=== PATIENT | female | born 1995 | race Two or more races ===

== ENCOUNTER 2021-03-19 19:09 | Emergency (ER) | payer MEDICAID, OTHER ==
[~2021-03-19] VITALS: Ht 162.6 cm; Wt 76.7 kg
[2021-03-20 02:13] VITALS: BP 114/78
== END 2021-03-20 04:41 | disposition home or self-care (01) ==
LOC: ER 19:12
DX: S06.899A Other specified intracranial injury with loss of consciousness of unspecified duration, initial encounter (principal); S52.502A Unspecified fracture of the lower end of left radius, initial encounter for closed fracture; S13.9XXA Sprain of joints and ligaments of unspecified parts of neck, initial encounter; S73.102A Unspecified sprain of left hip, initial encounter; S00.81XA Abrasion of other part of head, initial encounter; M62.838 Other muscle spasm; W18.00XA Striking against unspecified object with subsequent fall, initial encounter; Y93.89 Activity, other specified; Y92.89 Other specified places as the place of occurrence of the external cause; Y99.8 Other external cause status
CPT/HCPCS: 29125; 70450; 70486; 72125; 73130; 73502

== ENCOUNTER 2023-09-20 11:08 | Emergency (ER) | payer MEDICAID ==
[~2023-09-20] VITALS: Ht 167.6 cm; Wt 77.0 kg
[~2023-09-20 11:08] MED LIST: BACDST PO; IBUP-1456 PO
[2023-09-20 12:40] LABS: Urine Bacteria FEW /hpf (None Seen); Urine Blood Negative /uL (Negative); Urine Clarity Turbid (Clear); Urine Mucus FEW (None Seen); Urine Protein, UAD Negative (Negative); Urine Specific Gravity 1.008 (1.001-1.035); Urine Urobilinogen Normal (Negative); Urine WBC 3 /hpf (0 - 5)
[2023-09-20 12:41] LABS: Urine Color Straw (Yellow)
[2023-09-20 13:13] VITALS: BP 128/84; PULSE 94; RESP 18; TEMP 99.4; O2SAT 98
[2023-09-20 14:23] LABS: Vaginal Trichomonas Not Present
[2023-09-20 14:24] LABS: Vaginal Bacteria Many; Vaginal Clue Cells Moderate; Vaginal Epithelial Cells Many
[2023-09-20] MEDS ORDERED: METR-344 PO (14:27)
== END 2023-09-20 14:39 | disposition home or self-care (01) ==
LOC: ER 11:08
DX: O23.591 Infection of other part of genital tract in pregnancy, first trimester (principal); Z3A.01 Less than 8 weeks gestation of pregnancy; Z79.899 Other long term (current) drug therapy
CPT/HCPCS: 81001; 81025; 87210

== ENCOUNTER → 2023-11-05 | Outpatient (CLI) | payer MEDICAID ==
[~2023-11-05] MED LIST changes: +METR-344 PO
[2023-11-05 10:44] LABS: Basophils # (auto) 0 10 ^3/uL (0-0.2); Basophils % (auto) 0.3 % (0.0-2.0); Eosinophils # (auto) 0.1 10 ^3/uL (0-0.8); Eosinophils % (auto) 0.6 % (0.0-7.0); Hematocrit 39.2 % (36.0-46.0); Hemoglobin 13.6 g/dL (12.2-16.2); Lymphocytes # (auto) 1.7 10 ^3/uL (0.4-5.4); Lymphocytes % (auto) 19.9 % (10.0-50.0); Mean Corpuscular Hemoglobin 31.7 pg (28.0-32.0); Mean Corpuscular Hgb Conc. 34.7 g/dL (32.0-36.0); Mean Corpuscular Volume 91.4 fL (80.0-100.0); Monocytes # (auto) 0.4 10 ^3/uL (0-1.3); Monocytes % (auto) 4.9 % (0.0-12.0); Neutrophils # (auto) 6.4 10 ^3/uL (1.6-8.6); Neutrophils % (auto) 74.3 % (37.0-80.0); Red Blood Cells 4.29 10^6/uL (4.0-5.20); Red Cell Distribution Width 13.2 % (11.8-14.3); White Blood Cell 8.6 10^3/uL (4.4-10.8)
[2023-11-05 11:11] LABS: Alanine Aminotransferase 11 U/L (7-40); Albumin 4.3 g/dL (3.2-4.8); Alkaline Phosphatase 42 U/L (46-116); Anion Gap 6 (5-15); Aspartate Aminotransferase 9 U/L (13-40); Calcium 9.4 mg/dL (8.5-10.1); Carbon Dioxide 24 mmol/L (20-30); Chloride 106 mmol/L (98-107); Cholesterol 207 mg/dL (< 200); Glucose 85 mg/dL (74-106); HDL Cholesterol 61 mg/dL (40-59); LDL Cholesterol 137 mg/dL (< 100); Potassium 3.5 mmol/L (3.5-5.1); Sodium 136 mmol/L (136-145); Triglycerides 122 mg/dL (< 150)
[2023-11-05 11:12] LABS: Bilirubin, Total 0.3 mg/dL (0.2-1.0); Total Protein 7.1 g/dL (5.7-8.2)
[2023-11-05 11:20] LABS: BUN/Creatinine Ratio 9.3 (10.0-20.0); Blood Urea Nitrogen < 5 mg/dL (9-23)
[2023-11-05 11:39] LABS: Amphetamine Screen, Urine Neg (NEGATIVE); Barbiturate Scree,Urine Neg (NEGATIVE)
[2023-11-05 11:40] LABS: Benzodiazephine Screen, Urine Neg (NEGATIVE); Cannabinoid Screen, Urine Neg (NEGATIVE); Cocaine Screen, Urine Neg (NEGATIVE); Opiate Scree,Urine Neg (NEGATIVE); Phencyclidine Screen, Urine Neg (NEGATIVE)
[2023-11-06 06:06] LABS: RPR Non Reactive (Non Reactive)
[2023-11-06 10:06] LABS: Varicella Zoster IgG Antibody 1225 index (Immune >165)
[2023-11-06 14:06] LABS: Chlamydia Trachomatis, NAA Negative (Negative); Neisseria gonorrhoeae, NAA Negative (Negative)
[2023-11-07 11:07] LABS: QuantiFERON-TB Gold Plus Negative (Negative)
== END | disposition home or self-care (01) ==
LOC: LAB 10:12
PROVIDERS: ATTEND Obstetrics & Gynecology
DX: Z36.0 Encounter for antenatal screening for chromosomal anomalies (principal); Z34.80 Encounter for supervision of other normal pregnancy, unspecified trimester; Z31.430 Encounter of female for testing for genetic disease carrier status for procreative management; N39.0 Urinary tract infection, site not specified
CPT/HCPCS: 36415; 80053; 80061; 80307; 84439; 84702; 85025; 86592; 86703; 86762; 86787; 86850; 86900; 86901; 87086; 87340; 87902

== ENCOUNTER → 2023-11-29 | Outpatient (CLI) | payer MEDICAID | END | disposition home or self-care (01) | LOC: LAB 10:39 | PROVIDERS: ATTEND Obstetrics & Gynecology | DX: Z34.80 Encounter for supervision of other normal pregnancy, unspecified trimester (principal); Z3A.00 Weeks of gestation of pregnancy not specified | CPT/HCPCS: 36415; 84443 ==

== ENCOUNTER → 2024-03-05 | Outpatient (CLI) | payer MEDICAID ==
[2024-03-05 10:02] LABS: Basophils # (auto) 0 10 ^3/uL (0-0.2); Basophils % (auto) 0.1 % (0.0-2.0); Eosinophils # (auto) 0.1 10 ^3/uL (0-0.8); Eosinophils % (auto) 0.6 % (0.0-7.0); Hematocrit 39.2 % (36.0-46.0); Hemoglobin 13.3 g/dL (12.2-16.2); Lymphocytes # (auto) 1.6 10 ^3/uL (0.4-5.4); Lymphocytes % (auto) 17.1 % (10.0-50.0); Mean Corpuscular Hgb Conc. 33.9 g/dL (32.0-36.0); Mean Corpuscular Volume 91.3 fL (80.0-100.0); Monocytes # (auto) 0.5 10 ^3/uL (0-1.3); Monocytes % (auto) 4.9 % (0.0-12.0); Neutrophils # (auto) 7.2 10 ^3/uL (1.6-8.6); Neutrophils % (auto) 77.3 % (37.0-80.0); Nucleated Red Blood Cells % 0.3 %; Platelet Count (auto) 221 10^3/uL (140-450); Red Blood Cells 4.29 10^6/uL (4.0-5.20); Red Cell Distribution Width 14.5 % (11.8-14.3); White Blood Cell 9.3 10^3/uL (4.4-10.8)
[2024-03-05 10:07] LABS: Alkaline Phosphatase 62 U/L (46-116); Anion Gap 10 (5-15); Calcium 9.3 mg/dL (8.7-10.4); Carbon Dioxide 23 mmol/L (20-31); Chloride 106 mmol/L (98-107); Glucose 86 mg/dL (74-106); Potassium 3.9 mmol/L (3.5-5.1); Sodium 139 mmol/L (136-145)
[2024-03-05 10:08] LABS: Aspartate Aminotransferase 10 U/L (13-40); Bilirubin, Total 0.3 mg/dL (0.2-1.0)
[2024-03-05 10:19] LABS: Alanine Aminotransferase 9 U/L (7-40); BUN/Creatinine Ratio 9.8 (10.0-20.0); Blood Urea Nitrogen < 5 mg/dL (9-23)
[2024-03-06 10:59] LABS: RPR Non Reactive (Non Reactive)
[2024-03-06 18:06] LABS: Chlamydia Trachomatis, NAA Negative (Negative); Neisseria gonorrhoeae, NAA Negative (Negative)
== END | disposition home or self-care (01) ==
LOC: LAB 09:24
PROVIDERS: ATTEND Obstetrics & Gynecology
DX: Z34.80 Encounter for supervision of other normal pregnancy, unspecified trimester (principal); Z3A.00 Weeks of gestation of pregnancy not specified
CPT/HCPCS: 36415; 80053; 82951; 83036; 85025; 86592; 86850; 86900; 86901

== ENCOUNTER 2024-05-03 13:13 | Emergency (ER) | payer MEDICAID ==
[~2024-05-03] VITALS: Ht 162.6 cm; Wt 84.0 kg
[2024-05-03 13:22] VITALS: BP 125/87; PULSE 125; RESP 18; O2SAT 97
[2024-05-03] MEDS ORDERED: PREN-96 PO (16:22)
[2024-05-03] MEDS ORDERED: AZITTAB PO (16:43)
== END 2024-05-03 13:27 | disposition left against medical advice (07) ==
LOC: ER 13:13
DX: O26.893 Other specified pregnancy related conditions, third trimester (principal); R10.2 Pelvic and perineal pain; R05.9 Cough, unspecified; R50.9 Fever, unspecified; R09.81 Nasal congestion; Z53.21 Procedure and treatment not carried out due to patient leaving prior to being seen by health care provider; Z3A.34 34 weeks gestation of pregnancy

== ENCOUNTER 2024-05-03 13:30 | Observation (INO) | payer MEDICAID ==
[~2024-05-03] VITALS: Ht 162.6 cm; Wt 81.6 kg
[2024-05-03] MEDS: ceFAZolin 2 GM/D5W50ml 50 ML IV ONE (15:47)
[2024-05-03] MEDS ORDERED: PREN-96 PO (16:22)
[2024-05-03] MEDS ORDERED: AZITTAB PO (16:43)
[2024-05-03] MEDS: LACTATED RINGER'S 1,000 ML IV ONE (18:24)
--- NOTE | 2024-05-05 07:42 | DVHDS2 ---
Physician Discharge Progress N Final Diagnosis: abd pain Operations or Procedures: Operations or Procedures nst,sono Condition on Discharge: Good Disposition: Home Discharge Instructions: Diet: Regular Activity: Light activity Medications: na Follow Up Care: Specialist: 3d Discharge Statement: "Patient was advised to return to the ER or call 911 if any headaches, dizziness, shortness of breath, chest pain, abdominal pain, bleeding, fevers, or worsening of medical condition. Patient was counseled about treatment plan, medications, possible side effects, patientverbalized understanding. All questions were answered to the best of my ability. This discharge took greater then 30 minutes in planning, reviewing documentation, counseling the patient, and discussing with other team members." BRIANNA GREER DO May 05, 2024 07:42
== END 2024-05-03 17:26 | disposition home or self-care (01) ==
LOC: LDRP 13:30
PROVIDERS: ADMIT Obstetrics & Gynecology; ATTEND Obstetrics & Gynecology
DX: O62.9 Abnormality of forces of labor, unspecified (principal); O99.891 Other specified diseases and conditions complicating pregnancy; M54.9 Dorsalgia, unspecified; O99.513 Diseases of the respiratory system complicating pregnancy, third trimester; R05.9 Cough, unspecified; Z98.890 Other specified postprocedural states; Z79.899 Other long term (current) drug therapy; Z3A.37 37 weeks gestation of pregnancy
CPT/HCPCS: 59025; 81002; 94760; 96365; G0378; J0690; 96360

== ENCOUNTER 2024-05-11 18:53 | Observation (INO) | payer MEDICAID ==
[~2024-05-11] VITALS: Ht 162.6 cm; Wt 84.8 kg
[~2024-05-11 18:53] MED LIST changes: +AZITTAB PO; +PREN-96 PO
--- NOTE | 2024-05-11 23:36 | DVHDS2 ---
Physician Discharge Progress N Final Diagnosis: IUP @ 38.3, false labor Operations or Procedures: Operations or Procedures NST Condition on Discharge: Stable Disposition: Home Discharge Instructions: Diet: Regular Activity: No Restrictions, As Tolerated Follow Up/Referral: [facility] to [facility] on [facility]24 at 2:00pm for NST/BPP. Medications: Take all prescriptions as directed. Follow Up Care: Discharge Statement: "Patient was advised to return to the ER or call 911 if any headaches, dizziness, shortness of breath, chest pain, abdominal pain, bleeding, fevers, or worsening of medical condition. Patient was counseled about treatment plan, medications, possible side effects, patientverbalized understanding. All questions were answered to the best of my ability. This discharge took greater then 30 minutes in planning, reviewing documentation, counseling the patient, and discussing with other team members." CHRISTIANO MORRIS DO May 11, 2024 23:36
== END 2024-05-11 20:47 | disposition home or self-care (01) ==
LOC: LDRP 18:53
PROVIDERS: ADMIT Obstetrics & Gynecology; ATTEND Obstetrics & Gynecology
DX: O47.1 False labor at or after 37 completed weeks of gestation (principal); Z98.890 Other specified postprocedural states; Z79.899 Other long term (current) drug therapy; Z3A.38 38 weeks gestation of pregnancy
CPT/HCPCS: 59025; 81002; 94760; G0378

== ENCOUNTER 2024-05-15 05:16 | Inpatient (IN) | payer MEDICAID ==
[2024-05-14 13:45] LABS: Basophils # (auto) 0 10 ^3/uL (0-0.2); Basophils % (auto) 0.1 % (0.0-2.0); Eosinophils # (auto) 0 10 ^3/uL (0-0.8); Eosinophils % (auto) 0.3 % (0.0-7.0); Hematocrit 38.2 % (36.0-46.0); Hemoglobin 12.9 g/dL (12.2-16.2); Lymphocytes # (auto) 1.3 10 ^3/uL (0.4-5.4); Lymphocytes % (auto) 14.4 % (10.0-50.0); Mean Corpuscular Hemoglobin 31.1 pg (28.0-32.0); Mean Corpuscular Hgb Conc. 33.9 g/dL (32.0-36.0); Monocytes # (auto) 0.5 10 ^3/uL (0-1.3); Monocytes % (auto) 5.2 % (0.0-12.0); Neutrophils # (auto) 7.3 10 ^3/uL (1.6-8.6); Nucleated Red Blood Cells % 0.1 %; Platelet Count (auto) 239 10^3/uL (140-450); Red Blood Cells 4.15 10^6/uL (4.0-5.20); Red Cell Distribution Width 14.7 % (11.8-14.3); White Blood Cell 9.1 10^3/uL (4.4-10.8)
[2024-05-14 14:00] LABS: Alanine Aminotransferase 11 U/L (7-40); Albumin 3.8 g/dL (3.2-4.8); Alkaline Phosphatase 97 U/L (46-116); Anion Gap 7 (5-15); Aspartate Aminotransferase 18 U/L (13-40); BUN/Creatinine Ratio 11.7 (10.0-20.0); Bilirubin, Total 0.4 mg/dL (0.2-1.0); Calcium 9.4 mg/dL (8.7-10.4); Carbon Dioxide 24 mmol/L (20-31); Chloride 106 mmol/L (98-107); Glucose 82 mg/dL (74-106); Potassium 3.5 mmol/L (3.5-5.1); Sodium 137 mmol/L (136-145); Total Protein 6.8 g/dL (5.7-8.2)
[2024-05-14 14:11] LABS: INR 0.92 (0.9-1.15); Partial Thromboplastin Time 26.2 SEC (24.5-34.5); Prothrombin Time 9.8 sec (9.3-11.8)
[2024-05-14 14:14] LABS: Blood Urea Nitrogen 7 mg/dL (9-23)
[2024-05-14 14:25] LABS: Urine Bacteria FEW /hpf (None Seen); Urine Blood Negative /uL (Negative); Urine Clarity Clear (Clear); Urine Color Yellow (Yellow); Urine Mucus FEW (None Seen); Urine Protein, UAD TRACE (Negative); Urine Specific Gravity 1.019 (1.001-1.035); Urine Squamous Epithelial Cell FEW /hpf (<5); Urine Urobilinogen Normal (Negative); Urine WBC 3 /hpf (0 - 5)
[2024-05-14 14:43] LABS: Amphetamine Screen, Urine Neg (NEGATIVE); Barbiturate Scree,Urine Neg (NEGATIVE); Benzodiazephine Screen, Urine Neg (NEGATIVE); Cannabinoid Screen, Urine Neg (NEGATIVE); Cocaine Screen, Urine Neg (NEGATIVE); Opiate Scree,Urine Neg (NEGATIVE); Phencyclidine Screen, Urine Neg (NEGATIVE)
[~2024-05-15] VITALS: Ht 162.6 cm; Wt 86.2 kg
[2024-05-15] VITALS (11 sets, daily range): BP systolic 114–130; BP diastolic 63–92; PULSE 70–97; RESP 16–17; TEMP 97.7–98.4; O2SAT 96–99
[2024-05-15] MEDS: METOCLOPRAMIDE HCL 5MG/ml INJ 2ml VIAL IV ONE ×2 (05:45→08:45)
[2024-05-15] MEDS: LACTATED RINGER'S 1,000 ML IV ONE (05:45)
[2024-05-15] MEDS: SODIUM CITR/CITRIC ACID ORAL SOLN 30 ML PO ONE (05:45)
[2024-05-15 06:06] LABS: RPR Non Reactive (Non Reactive)
--- NOTE | 2024-05-15 07:14 | DVHHP2 ---
OB CC & HPI Date Date of Admission: May 15, 2024 Patient Identification: : 2 Para: 1 EDC: May 20, 2024 EGA: 39.2 Chief Complaints: Reason for admission: section Indication for : desires repeat History of Present Complaints Term IUP 39+ wk, prior C/S desires repeat with no trial of labor EDC 05/15/24 by LMP c/w 8 wk US dating. uncomplicated other than by ptyalism. Past Medical History Cardiac: No pertinent Hx Pulmonary: No pertinent Hx Central Nervous System: No pertinent Hx GI: No pertinent Hx Hemotology/Oncology: No pertinent Hx Hepatobiliary: No pertinent Hx Psychiatric: No pertinent Hx Musculoskeletal: No pertinent Hx Rheumotologic: No pertinent Hx Infectious Disease: No peritnent Hx ENT: No pertinent Hx Renal/: No pertinent Hx Endocrine: No pertinent Hx Dermatology: No pertinent Hx Past Surgical History: OB History OB History Care: Good Care Obstetrical Complications: None Medical Complications: None Allergies: Coded Allergies: NO KNOWN ALLERGIES (Unverified , 03/19/21) Home Meds Active Scripts Metronidazole (Flagyl) 500 Mg Tab, 1 TAB PO BID, #14 TAB Prov:MARIAA MCNEILL 09/20/23 Ibuprofen (Ibuprofen) 800 Mg Tab, 1 TAB PO TID, #30 TAB Prov:MARIAA MCNEILL 12/14/22 Sulfamethoxazole W/Trimethopri (Bactrim Ds Tablet) 1 Tab Tb, 1 TAB PO BID for 10 Days, #20 TAB Prov:MARIAA MCNEILL 12/14/22 Reported Medications Azithromycin (Zithromax Z-Dale) 250 Mg Tab, 250 MG PO, TAB 05/03/24 Vit W/ Ferrous Fumara ( One Daily) Daily Tab, 1 TAB PO DAILY, #90 TAB 3 Refills 05/03/24 Current Medications Current Medications Medications (Trade) Dose Ordered Sig/Amy Route PRN Reason Start Time Stop Time Status Last Admin Lactated Ringer's 1,000 ml @ 125 mls/hr Q8H IV 05/15/24 05:45 Family & Social History Family/Social History Blood Type: O+ Rubella: immune RPR/VDRL: Negative GBS Status: Unknown HBsAG: Negative Review of Systems Constitutional: No symptom reported Ears, Nose, & Throat: No symptom reported Eyes: No symptom reported Pulmonary/Respiratory: No symptom reported Cardiovascular: No symptom reported Gastrointestinal: No symptom reported Genitourinary: No symptom reported Musculoskeletal: No symptom reported Skin: No symptom reported Psychiatric: No symptom reported Endocrine: No symptom reported Hemotologic/Lymphatic: No symptom reported OB Admission Exam Physical Exam HEENT: TMs Normal, Fontanelles Normal, Nasal Mucosa Normal, Eyes non-injected, Oropharynx Normal, PERRLA, Moist Membranes, EOMI Heart: Rhythm Normal Lungs: Clear Abdomen: Non tender Extremities: Normal Reflexes: Normal Pelvic Exam: Deferred Heart Rate: 130's Accelerations: Accelerations Present Decelerations: No Decelerations Short Term Variability: Present Detention Variability: Average (6-25) Contractions on Admission: >10 Minutes Apart Intensity: Mild OB Plan Plan Admitting Diagnosis: Term IUP 39+ wk, Prior C/S x 1 desires Repeat Section Plan: Section Other Plan: Informed consent obtained for C/S and possible blood transfusion R/B/A discussed in detail. CHRISTIANO MORRIS DO May 15, 2024 07:13
[2024-05-15] MEDS: KETOROLAC TROMETH 30 MG/ML 1ML VIAL IV ONE (08:45)
[2024-05-15] MEDS ORDERED: HYDROmorphone HCL 2 MG/ML VL/or syr IV PRN ×3 (08:45→10:45)
[2024-05-15] MEDS ORDERED: fentaNYL CITRATE 100 MCG/2 ML VL IV PRN (08:45)
[2024-05-15] MEDS: TETRACAINE 1% INJ 2 ML VIAL IJ ONE (08:57)
[2024-05-15] MEDS ORDERED: oxyTOCIN 10 UNIT/ML 10ML VIAL ONE (08:59)
[2024-05-15] MEDS ORDERED: SODIUM CHLORIDE LOCK 10 ML ONE (08:59)
[2024-05-15] MEDS ORDERED: ONDANSETRON HCL 4 MG/2 ML VIAL ONE (08:59)
[2024-05-15] MEDS ORDERED: MIDAZOLAM HCL 2MG/2ML 2ml VIAL (1mg/ml) ONE (08:59)
[2024-05-15] MEDS ORDERED: fentaNYL CITRATE 100 MCG/2 ML VL ONE (08:59)
[2024-05-15] MEDS ORDERED: BUPIVACAINE/DEXTROSE MPF 0.75% 2 ML AMP IT ONE (08:59)
[2024-05-15] MEDS ORDERED: MORPHINE SULF PF 5 MG/10 ML VIAL ONE (08:59)
[2024-05-15] MEDS ORDERED: MORPHINE SULFATE INJ 2 MG/ml SYRG IV PRN (10:00)
[2024-05-15] MEDS ORDERED: NALOXONE HCL 0.4 MG/ML VIAL IV PRN (10:45)
--- NOTE | 2024-05-15 10:53 | DVHOP ---
DATE OF SURGERY: 05/15/2024 PREOPERATIVE DIAGNOSES: * Term intrauterine , 39 weeks 2 days. * Previous section, desires repeat. POSTOPERATIVE DIAGNOSES: * Term intrauterine , 39 weeks 2 days. * Previous section, desires repeat. PROCEDURE PERFORMED: Repeat low transverse section via Pfannenstiel skin incision. SURGEON: Chevy Gutierrez DO REGISTERED MEDICAL ASSISTANT: Benito Montoya NP TYPE OF ANESTHESIA: Spinal. ANESTHESIOLOGIST: Ivania Luna M.D. DESCRIPTION OF FINDINGS: Delivery of a liveborn female , cephalic presentation, 1+ meconium fluid, nuchal cord x1. scores of 8 and 9. Normal placenta, 3-vessel umbilical cord, normal bilateral fallopian tubes and ovaries. Minimal amount of adhesions, single layer uterine closure with Stratafix. TECHNICAL PROCEDURE: After informed consent was obtained, the patient was taken to the operating room where her spinal anesthesia was found to be adequate. She was placed in the supine position with a slight leftward tilt. She was sterilely prepped and draped in the usual sterile fashion. A Pfannenstiel skin incision was made with the scalpel. The incision was carried through the old scar sharply to the underlying layer of fascia. The fascia was incised in the midline and extended laterally. The rectus fascia was dissected off the rectus muscles and entry into the peritoneal cavity was performed bluntly using digital technique. There was no bowel or adhesions to the anterior abdominal wall. The peritoneal incision was extended superiorly and inferiorly with good visualization of underlying organs and bladder. The Prosper O retractor was placed into the incision using a second scalpel, the uterus was incised in a low transverse fashion. The incision was extended laterally using digital technique. The amniotic fluid membranes were ruptured. The fluid was 1+, meconium stained. The baby was then delivered atraumatically from the cephalic presentation. There was a loose nuchal cord that was reduced at the time of delivery. The nose and mouth were suctioned. The cord was clamped and cut after 60 seconds and the baby handed off to waiting pediatric team. scores of 8 and 9 were assigned. The placenta was spontaneously delivered. The uterus was exteriorized and cleared of all clots and debris using moist laparotomy sponges. The uterine incision was repaired using #1 Stratafix spiral in continuous running fashion with good tissue approximation noted. Next, the uterus was returned to the abdomen. The cul-de-sac and pericolic gutters were cleared of all clots and debris. The abdomen was irrigated with sterile water. Hemostasis was confirmed. All instrumentation was removed from the patient's abdomen. I then proceeded to close the rectus fascia using #1 Stratafix in continuous running fashion with good tissue approximation. Next, the subcutaneous tissue was irrigated. Bleeding points controlled with cautery. The subcutaneous tissue was approximated with 3-0 plain gut in continuous running fashion. The skin was closed with 3-0 Monocryl in a subcuticular fashion and a Sylke sterile dressing was placed over the incision. The patient tolerated the procedure well. Sponge, lap and needle counts were correct x4. INTRAOPERATIVE COMPLICATIONS: None. ESTIMATED BLOOD LOSS: 700 mL. POSTOPERATIVE CONDITION: Stable. SPECIMENS: Cord blood and placenta. MEDICATIONS: The patient received 2 g of Ancef prior to skin incision and IV Pitocin at the time of cord clamp. DO AMARI Urbina/LEONARDO TID: [id number] RECEIPT: [id number]
[2024-05-15] MEDS: diphenhdrAMINE HCL 50 MG/1 ML VL IV PRN (11:08)
[2024-05-15] MEDS: LACTATED RINGER'S 1,000 ML IV SCH (13:45)
[2024-05-15] MEDS: ceFAZolin 2 GM/D5W50ml 50 ML IV ONE (13:51)
[2024-05-15] MEDS: ceFAZolin 1GM/50ML 50 ML IV SCH (17:47)
[2024-05-15] MEDS: ACETAMINOPHEN IV 1000 MG/100ML (10MG/ML) IV PRN (19:20)
[2024-05-16] VITALS (9 sets, daily range): BP systolic 117–146; BP diastolic 54–86; PULSE 87–106; RESP 16–20; TEMP 98–99.1; O2SAT 94–100
[2024-05-16] MEDS: KETOROLAC TROMETH 30 MG/ML 1ML VIAL IV PRN (01:44)
--- NOTE | 2024-05-16 02:58 | DVHPN2 ---
Progress Note Date Seen: May 16, 2024 Subjective POD#1 s/p scheduled repeat C/S at Term S: Pain controlled. Lochia mild. No N/V vital signs Vital Sign Date Time Temp Pulse Resp B/P (MAP) Pulse Ox O2 Delivery O2 Flow Rate FiO2 05/16/24 01:00 89 121/71 (88) 96 05/15/24 23:00 98.4 98.4 05/15/24 19:00 Room Air 05/15/24 16:00 16 05/15/24 10:38 4.0 05/15/24 10:38 99 Total Intake and Output 05/15/24 05/15/24 05/16/24 15:00 23:00 07:00 Output Total 650 ml 150 ml 600 ml Balance -650 ml -150 ml -600 ml medications Current Medications Medications Dose Ordered Sig/Amy Route Start Time Stop Time Status Last Admin Dose Admin Lactated Ringer's 1,000 ml @ 125 mls/hr Q8H IV 05/15/24 05:45 05/16/24 01:46 125 MLS/HR Diphenhydramine HCl 25 mg Q4HP PRN IV 05/15/24 10:45 05/16/24 01:44 25 MG Ketorolac Tromethamine 30 mg Q6HP PRN IV 05/15/24 10:45 05/20/24 10:44 05/16/24 01:44 30 MG Cefazolin Sodium 50 ml @ 100 mls/hr Q8H IV 05/15/24 18:00 05/16/24 10:29 05/16/24 01:45 100 MLS/HR Acetaminophen 1,000 mg Q8HPRN PRN IV 05/15/24 15:00 05/16/24 14:59 05/15/24 19:20 1,000 MG laboratory and microbiology Laboratory Tests 05/14/24 13:22 Test 05/14/24 13:22 Range/Units Serum Glucose 82 74-106 mg/dL Objective O: AFVSS Chest: heart and lung sounds normal. Abd soft, non-tender, fundus firm, BS, no rebound or guarding, Incision - dressing and incision clean, dry, intact Ext Neg Homans, Non-tender, edema Lochia - minimal Labs Reviewed Assessment/Plan POD#1 s/p R C/Sect doing well PLAN: Continue supportive care D/C db guadarrama Hepmario IV Regular diet Plan discussed with: Patient KINDRARUBÉNCHRISTIANO Ching DO May 16, 2024 02:58
[2024-05-16 04:41] LABS: Basophils # (auto) 0 10 ^3/uL (0-0.2); Basophils % (auto) 0.4 % (0.0-2.0); Eosinophils # (auto) 0 10 ^3/uL (0-0.8); Eosinophils % (auto) 0.3 % (0.0-7.0); Hemoglobin 10.4 g/dL (12.2-16.2); Lymphocytes # (auto) 1.5 10 ^3/uL (0.4-5.4); Lymphocytes % (auto) 15.8 % (10.0-50.0); Mean Corpuscular Hgb Conc. 34.5 g/dL (32.0-36.0); Mean Corpuscular Volume 92.8 fL (80.0-100.0); Monocytes # (auto) 0.7 10 ^3/uL (0-1.3); Monocytes % (auto) 7.4 % (0.0-12.0); Neutrophils # (auto) 7.2 10 ^3/uL (1.6-8.6); Neutrophils % (auto) 76.1 % (37.0-80.0); Platelet Count (auto) 188 10^3/uL (140-450); Red Blood Cells 3.23 10^6/uL (4.0-5.20); Red Cell Distribution Width 14.8 % (11.8-14.3); White Blood Cell 9.5 10^3/uL (4.4-10.8)
[2024-05-16] MEDS ORDERED: IBUPROFEN 800 MG TAB PO PRN (11:15)
[2024-05-16] MEDS ORDERED: HYDROcodone-ACET 5/325MG TAB PO PRN (11:15)
[2024-05-16] MEDS ORDERED: BISACODYL 10 MG RECT SUPP PR PRN (11:15)
[2024-05-16] MEDS: DOCUSATE CALCIUM 240 MG CAP PO SCH (11:41)
[2024-05-16] MEDS: SIMETHICONE 80 MG CHEWABLE TABLET PO SCH (11:41)
[2024-05-16] MEDS: HYDROcodone-ACET 5/325MG TAB PO PRN (19:12)
[2024-05-16] MEDS: DOCUSATE SOD 100 MG CAP PO SCH (22:24)
[2024-05-17 03:30] VITALS: BP 134/82; PULSE 102; RESP 18; TEMP 98.4; O2SAT 97
[2024-05-17 07:00] VITALS: BP 132/82; PULSE 96; RESP 18; TEMP 98; O2SAT 98
[2024-05-17] MEDS ORDERED: IBUP-1455 PO (09:55)
[2024-05-17] MEDS ORDERED: HYDR-4902 PO (09:55)
--- NOTE | 2024-05-17 10:00 | DVHDS2 ---
Discharge Summary Date of Admission May 15, 2024 at 05:16 Date of Discharge: May 17, 2024 Admitting Diagnosis Term , previous c/section desires repeat Labs/Diagnostic Data: Laboratory Results Test 05/16/24 04:20 05/14/24 13:22 05/14/24 12:45 White Blood Count 9.5 10^3/uL (4.4-10.8) Red Blood Count 3.23 10^6/uL (4.0-5.20) Hemoglobin 10.4 g/dL (12.2-16.2) Hematocrit 30.0 % (36.0-46.0) Mean Corpuscular Volume 92.8 fL (80.0-100.0) Mean Corpuscular Hemoglobin 32.0 pg (28.0-32.0) Mean Corpuscular Hemoglobin Concent 34.5 g/dL (32.0-36.0) Red Cell Distribution Width 14.8 % (11.8-14.3) Platelet Count 188 10^3/uL (140-450) Mean Platelet Volume 7.8 fL (6.9-10.8) Neutrophils (%) (Auto) 76.1 % (37.0-80.0) Lymphocytes (%) (Auto) 15.8 % (10.0-50.0) Monocytes (%) (Auto) 7.4 % (0.0-12.0) Eosinophils (%) (Auto) 0.3 % (0.0-7.0) Basophils (%) (Auto) 0.4 % (0.0-2.0) Neutrophils # (Auto) 7.2 10 ^3/uL (1.6-8.6) Lymphocytes # (Auto) 1.5 10 ^3/uL (0.4-5.4) Monocytes # (Auto) 0.7 10 ^3/uL (0-1.3) Eosinophils # (Auto) 0 10 ^3/uL (0-0.8) Basophils # (Auto) 0 10 ^3/uL (0-0.2) Nucleated Red Blood Cells 0.0 % Prothrombin Time 9.8 sec (9.3-11.8) Prothrombin Time INR 0.92 (0.9-1.15) Activated Partial Thromboplast Time 26.2 SEC (24.5-34.5) Sodium Level 137 mmol/L (136-145) Potassium Level 3.5 mmol/L (3.5-5.1) Chloride Level 106 mmol/L (98-107) Carbon Dioxide Level 24 mmol/L (20-31) Anion Gap 7 (5-15) Blood Urea Nitrogen 7 mg/dL (9-23) Creatinine 0.60 mg/dL (0.550-1.02) Glomerular Filtration Rate Calc 126 mL/min (>90) BUN/Creatinine Ratio 11.7 (10.0-20.0) Serum Glucose 82 mg/dL (74-106) Calcium Level 9.4 mg/dL (8.7-10.4) Total Bilirubin 0.4 mg/dL (0.2-1.0) Aspartate Amino Transferase (AST) 18 U/L (13-40) Alanine Aminotransferase (ALT) 11 U/L (7-40) Alkaline Phosphatase 97 U/L (46-116) Total Protein 6.8 g/dL (5.7-8.2) Albumin 3.8 g/dL (3.2-4.8) Rapid Plasma Reagin Non reactive (Non Reactive) Hepatitis C Antibody Negative (Negative) Urine Color Yellow (Yellow) Urine Clarity Clear (Clear) Urine pH 7.0 (5.0-9.0) Urine Specific Talmage 1.019 (1.001-1.035) Urine Protein Trace (Negative) Urine Ketones Negative (Negative) Urine Blood Negative /uL (Negative) Urine Nitrite Negative (Negative) Urine Bilirubin Negative (Negative) Urine Urobilinogen Normal mg/dL (Negative) Urine Leukocyte Esterase Negative /uL (Negative) Urine RBC None seen /hpf (0 - 4) Urine WBC 3 /hpf (0 - 5) Urine Squamous Epithelial Cells Few /hpf (<5) Urine Bacteria Few /hpf (None Seen) Urine Mucus Few (None Seen) Urine Glucose Normal mg/dL (Normal) Urine Opiates Screen Neg (NEGATIVE) Urine Fentanyl Screen Neg (NEGATIVE) Urine Barbiturates Screen Neg (NEGATIVE) Urine Phencyclidine Screen Neg (NEGATIVE) Urine Amphetamines Screen Neg (NEGATIVE) Urine Benzodiazepines Screen Neg (NEGATIVE) Urine Cocaine Screen Neg (NEGATIVE) Urine Cannabinoids Screen Neg (NEGATIVE) Other Laboratory Tests 05/16/24 04:20 05/14/24 13:22 Brief Hx & Hospital Course: Admitted for repeat scheduled c/section with no trial of labor Uneventful surgical delivery. Normal course without complications Demonstrates normal bowel/bladder function. Pain controlled. Vital signs stable. Operations or Procedures Repeat low transv c/section Condition at Discharge: Stable Final Diagnosis/Problems List Term , delivered s/p repeat C/Section Discharge Disposition: Home Discharge Instruct/Medications Diet: Regular Activity: Light activity Activity comment: Pelvic rest x 6 weeks Follow Up/Referral: [address] Morris for wound check in office Medications: eRx Ibuprofen and norco 5mg Discharge Statement: "Patient was advised to return to the ER or call 911 if any headaches, dizziness, shortness of breath, chest pain, abdominal pain, bleeding, fevers, or worsening of medical condition. Patient was counseled about treatment plan, medications, possible side effects, patientverbalized understanding. All questions were answered to the best of my ability. This discharge took greater then 30 minutes in planning, reviewing documentation, counseling the patient, and discussing with other team members." ASSESSMENT ASSESSMENT Assessment Term , delivered s/p repeat C/Section CHRISTIANO MORRIS DO May 17, 2024 10:00
[2024-05-17 11:00] VITALS: BP 133/96; PULSE 100; RESP 16; TEMP 98.3; O2SAT 98
[2024-05-18 13:06] LABS: Treponema Pallidum Ab LC Non Reactive (Non Reactive)
== END 2024-05-17 13:24 | disposition home or self-care (01) | DRG 540 ==
LOC: LDRP 05:16
PROVIDERS: ADMIT Obstetrics & Gynecology; ATTEND Obstetrics & Gynecology
PROC: 10D00Z1 Extraction of Products of Conception, Low, Open Approach (ICD-10-PCS; principal; 2024-05-15 09:22)
DX: O34.211 Maternal care for low transverse scar from previous cesarean delivery (principal); R71.0 Precipitous drop in hematocrit; Z37.0 Single live birth; Z3A.39 39 weeks gestation of pregnancy
CPT/HCPCS: 36415; 80053; 80307; 81001; 85025; 85610; 85730; 86592; 86780; 86803; 86850; 86900; 86901; 94760; 96360; 96361; 96372; G0378; J0131; J1885; J2250; J2405; J2590